=== PATIENT | female | born 1955 | race Two or more races ===

== ENCOUNTER 2018-07-05 14:28 | Emergency (ER) | payer BC ==
[~2018-07-05] VITALS: Ht 165.1 cm; Wt 81.6 kg
[2018-07-05] MEDS ORDERED: PAROXETINE HCL20 MG PO (14:41)
[2018-07-05 14:52] VITALS: BP 122/77
--- NOTE | 2018-07-05 14:58 | Emergency Room Report ---
History of Present Illness General Chief Complaint: Multiple Trauma/Fall Source: Patient Present Illness HPI 62-year-old female patient presents ER complaining of left upper extremity and right knee pain status post fall. Reports that she was on her break at work, works at [employer], when she tripped and fell. Denies hitting her head or loss consciousness. Reports that she landed on her left elbow and wrist and right knee. Reports abrasion on right knee. Reports pain with ambulation. Reports she is right-hand dominant. reports history of left wrist fracture, states that she has plates currently in her left wrist, reports surgery was 3 years ago. Allergies: Coded Allergies: SULFA (SULFONAMIDE ANTIBIOTICS) (Verified Allergy, Unknown, rash, 07/05/18) Patient History Past Medical History: see triage record Reviewed Nursing Documentation: PMH: Agreed; PSxH: Agreed Nursing Documentation-PMH Past Medical History: No History, Except For Hx Hypertension: Yes Hx COPD: Yes Review of Systems All Other Systems: negative except mentioned in HPI Physical Exam Vital Signs Date Time Temp Pulse Resp B/P (MAP) Pulse Ox O2 Delivery O2 Flow Rate FiO2 07/05/18 14:33 97.6 66 18 122/77 95 Room Air 97.5 Sp02 EP Interpretation: reviewed, normal General Appearance: well appearing, no apparent distress, alert, GCS 15, non- toxic Head: normocephalic, atraumatic Eyes: bilateral eye normal inspection, bilateral eye PERRL ENT: hearing grossly normal, normal pharynx, no angioedema, normal voice, uvula midline, moist mucus membranes Neck: full range of motion Respiratory: lungs clear, normal breath sounds, no rhonchi, no respiratory distress, no accessory muscle use, no wheezing, speaking full sentences Cardiovascular #1: regular rate, rhythm, no edema Cardiovascular #2: 2+ radial (R), 2+ radial (L) Musculoskeletal: back normal, digits/nails normal, gait/station normal, non- tender, decreased range of motion - secondary to pain of left elbow and wrist and right knee, swelling - mild swelling at left elbow, other - NVI, no deformity, tender - mild left snuffbox tenderness, anterior right knee, distal to left anterior antecubital fossa Skin: abrasions - over right knee, no surrounding erythema or edema, no active bleeding Medical Decision Making PA Attestation Dr. Yarbrough is my supervising Physician whom patient management has been discussed with. Diagnostic Impression: Primary Impression: Patella fracture Additional Impressions: Wrist sprain Fracture of radial neck ER Course Pt. presents to the ED c/o left upper extremity and right knee pain status post trip and fall. Ddx considered but are not limited to fracture, sprain, strain, contusion, dislocation. No erythema, no warmth to touch, no fever, nontoxic appearing, low suspicion for septic joint. Vital signs: are WNL, pt. is afebrile Ordered X-ray and pain medication. ER COURSE Provided with pain medication. right knee abrasion cleaned and bacitracin applied to wound. An X-ray of the left wrist shows no acute fracture, old fracture with plate and screws noted for the preliminary reading. Likely sprain. An X-ray of the left elbow shows radial neck fracture per the official reading. An X-ray of the right knee shows patellar fracture per the official reading. knee immobilizer was applied to the right knee and a long arm splint applied to left arm and was checked afterwards by me showing good alignment and support with distal neurovascular functioning intact. Cane provided. Patient instructed on RICE method: rest, ice, compression, elevation. Patient instructed on rest, ice and heat. Patient instructed to be NWB. Work note provided. Contact information for orthopedic urgent care provided, follow-up with urgent care if unable to followup with primary care provider and get referral to supervisory training specialist. Followup with primary care provider. Discuss referral to ortho/pain management/ PT as needed. Discuss further imaging with MRI/CT as needed. DISCHARGE: -Rx provided for Tylenol #3 for pain symptoms. CURES reviewed. At this time pt. is stable for d/c to home. Patient is resting comfortably, in no acute distress, nontoxic appearing, talking without difficulty. Will provide printed patient care instructions, and any necessary prescriptions. Patient instructed to follow with primary care provider in 3 - 5 days and to request further follow-up as needed. Care plan and follow up instructions have been discussed with the patient prior to discharge. Take medications as directed. Patient questions asked and answered. Patient reports understanding and agreement to treatment plan. ER precautions given, patient instructed to return to ER immediately for any new or worsening of symptoms. - Please note that this Emergency Department Report was dictated using [employer] technology software, occasionally this can lead to erroneous entry secondary to interpretation by the dictation equipment. Other X-Ray Diagnostic Results Other X-Ray Diagnostic Results #1: X-Ray ordered: right knee # of Views/Limited Vs Complete: 3 View Indication: Pain EP Interpretation: Yes PA Xray: Interpretation reviewed, by supervising MD, and agrees with findings. Interpretation: other - patellar fracture Impression: Other - patella fracture PA Scribe Text Obie Garcia PA-C Other X-Ray Diagnostic Results #2: X-Ray ordered: left wrist # of Views/Limited Vs Complete: 3 View Indication: Pain EP Interpretation: Yes PA Xray: Interpretation reviewed, by supervising MD, and agrees with findings. Interpretation: no dislocation, no soft tissue swelling, no fractures, other - old fracture with plate and screws Impression: No acute disease PA Scribe Text Obie Garcia PA-C Other X-Ray Diagnostic Results #3: X-Ray ordered: left elbow # of Views/Limited Vs Complete: 3 View Indication: Pain EP Interpretation: Yes PA Xray: Interpretation reviewed, by supervising MD, and agrees with findings. Interpretation: no dislocation, no soft tissue swelling, other - radial neck fracture Impression: Other - fracture PA Scribe Text Obie Garcia PA-C Last Vital Signs Date Time Temp Pulse Resp B/P (MAP) Pulse Ox O2 Delivery O2 Flow Rate FiO2 07/05/18 14:33 97.6 66 18 122/77 95 Room Air 97.5 Disposition: HOME, SELF-CARE Condition: Stable Scripts Acetaminophen With Codeine (T#3) (TYLENOL #3 TAB*) Y Tab 1 TAB ORAL Q4H PRN for For Pain, #10 TAB Prov: Al Garcia 07/05/18 Patient Instructions: Patellar Fracture, Adult, Radial Fracture, Radial Head Fracture, [id number], Wrist Fracture, [id number], Wrist Sprain Additional Instructions: Patient instructed to follow up with primary care provider and discuss further referral to orthopedics/physical therapy/pain management as needed. If unable to followup with PCP, followup with orthopedic urgent care in 5-7 days , call to schedule appointment. Patient instructed on RICE method: rest, ice, compression, elevation. Patient instructed to NWB.. Take medications as directed. may cause drowsiness, do not take prior to drinking, driving, operating heavy machinery. Patient questions asked and answered. ER precautions given, patient instructed to return to ER immediately for any new or worsening of symptoms. [facility] [address] [facility] [address] [facility], [address] [email or web address] Al Garcia Jul 05, 2018 14:58
[2018-07-05] MEDS ORDERED: Acetaminophen 500mg (ES) tab ORAL ONE (15:00)
[2018-07-05] MEDS ORDERED: Bacitracin Oint UD TOPIC ONE (15:00)
--- NOTE | 2018-07-05 16:10 | Diagnostic Imaging Report ---
Indication: Pain left wrist pain Findings: 3 views of the left wrist were obtained. No acute fracture or malalignment identified. There is a volar plate in the distal radius. Soft tissues are unremarkable. IMPRESSION: Evidence of a old distal radius fracture reduced by a plate and screws. No acute fracture identified
--- NOTE | 2018-07-05 16:12 | Diagnostic Imaging Report ---
Indication: Pain Knee pain/trauma 3 views of the right knee were obtained. Findings: There is a nondisplaced transverse fracture involving the lower aspect of the patella. There is associated soft tissue swelling. No significant joint effusion appreciated. No malalignment identified. IMPRESSION: Acute patellar fracture
--- NOTE | 2018-07-05 16:12 | Diagnostic Imaging Report ---
Indication: Pain Findings: 3 views of the left elbow were obtained. Subtle fracture involving the humeral neck demonstrated. This may be acute. Correlate clinically. There is a small joint effusion present. Well-corticated ossicle noted adjacent to the lateral epicondyles the distal humerus. This may reflect calcific tendinopathy or possibly an old injury. IMPRESSION: Suspected fracture of the radial neck
[2018-07-05] MEDS ORDERED: ACETAMINOPHEN-1 EAC1 ORAL (16:18)
[2018-07-05 18:11] VITALS: BP 122/77
== END 2018-07-05 17:20 | disposition home or self-care (01) ==
LOC: EMR 15:05
DX: S52.132A Displaced fracture of neck of left radius, initial encounter for closed fracture (principal); S63.502A Unspecified sprain of left wrist, initial encounter; S82.001A Unspecified fracture of right patella, initial encounter for closed fracture; W01.0XXA Fall on same level from slipping, tripping and stumbling without subsequent striking against object, initial encounter; Y93.89 Activity, other specified; Y92.89 Other specified places as the place of occurrence of the external cause; Y99.0 Civilian activity done for income or pay; I10 Essential (primary) hypertension; J44.9 Chronic obstructive pulmonary disease, unspecified; Z88.2 Allergy status to sulfonamides
CPT/HCPCS: 99284